=== PATIENT | male | born 1965 | race Caucasian/White ===

== ENCOUNTER 2020-07-19 17:07 | Emergency (ER) | payer OTHER ==
[2020-07-19] MEDS ORDERED: AMPICILLIN/SULBACTAM 3 GM in SODIUM CHLORIDE 0.9% MINIBAG 100 ML IV STA (17:21)
--- NOTE | 2020-07-19 17:22 | ED Physician Documentation ---
PD HPI WOUND RECHECK - Stated complaint Stated Complaint: CAT BITE - Chief complaint Chief Complaint: Wound - Histroy obtained from History obtained from: Patient (Cat bit him several times about the right index finger about 24 hours ago. He has swelling and redness in that area. No fevers. Tetanus is unknown.) Review of Systems Constitutional: reports: Reviewed and negative Eyes: reports: Reviewed and negative Ears: reports: Reviewed and negative Nose: reports: Reviewed and negative PD PAST MEDICAL HISTORY - Present Medications Home Medications: Ambulatory Orders Medication Instructions Recorded Confirmed Amox/Clav 875/125 [Augmentin] 1 each PO Q12H #20 tablet 07/19/20 - Allergies Allergies/Adverse Reactions: Allergies Allergy/AdvReac Type Severity Reaction Status Date / Time No Known Drug Allergies Allergy Verified 07/19/20 17:15 PD ED PE NORMAL - Vitals Vital signs reviewed: Yes - General General: Alert and oriented X 3, No acute distress - Extremities Extremities: Other (Several puncture wounds about the right second finger, some purulence is expressible. No obvious cellulitis. No significant swollen digit or tenderness along the flexor tendon sheath.) - Neuro Neuro: Alert and oriented X 3, Normal speech Results - Vitals Vitals: Vital Signs - 24 hr 07/19/20 07/19/20 17:13 18:24 Temperature 36.0 C L 37.2 C Heart Rate 105 H 99 Respiratory 16 16 Rate Blood Pressure 174/98 H 142/82 H O2 Saturation 98 96 Oxygen O2 Source Room air - Labs Labs: Microbiology 07/19/20 17:20 Wound Culture - Preliminary Finger - Right Index PD MEDICAL DECISION MAKING - ED course ED course: 55-year-old gentleman with finger infection from a cat bite. He was administered IV Unasyn here and a culture was sent. No evidence of tenosynovitis at this juncture. Departure - Departure Disposition: 01 Home, Self Care Clinical Impression: Infected cat bite of finger Qualifiers: Encounter type: initial encounter Qualified Code(s): S61.259A - Open bite of un specified finger without damage to nail, initial encounter Condition: Good Record reviewed to determine appropriate education?: Yes Instructions: ED Bite Animal General Prescriptions: Amox/Clav 875/125 [Augmentin] 1 each PO Q12H #20 tablet Comments: Return if worsening, if you develop significant more swelling or redness or fevers or if you feel like you have difficulty moving that finger. We are performing a wound culture, the results should be done in 48-72 hours. If antibiotic change is necessary we will call you. Return if worse in the meantime, especially if you develop increased pain, fevers, cannot keep down the medication. Otherwise follow-up with your physician in approximately 2-3 days. Discharge Date/Time: 07/19/20 18:38
[2020-07-19 18:25] VITALS: BP 142/82
[2020-07-19] MEDS ORDERED: TETANUS/DIPHTHERIA/PERTUSSIS 0.5 ML SYRINGE IM ONE (18:25)
== END 2020-07-19 18:38 | disposition home or self-care (01) ==
LOC: ED 17:07
DX: S61.250A Open bite of right index finger without damage to nail, initial encounter (principal); L08.9 Local infection of the skin and subcutaneous tissue, unspecified; W55.01XA Bitten by cat, initial encounter; Z23 Encounter for immunization
CPT/HCPCS: 87070; 87077; 87181; 87205; 90471; 96365; 99283